=== PATIENT | male | born 1955 | race Caucasian/White ===

== ENCOUNTER 2019-08-22 14:23 | Inpatient (IN) | payer OTHER ==
[~2019-08-22] VITALS: Ht 185.4 cm; Wt 117.8 kg
[~2019-08-22 14:23] MED LIST: ATIVAN1 MG PO; BENTYL 10 MG CA10 M1 PO; CALTRATE 600 +1 EACH PO; CELEXA 20 MG TA20 MG PO; CELEXA20 MG PO; DEPAKOTE ER500 MG PO; ENALAPRIL MALEA10 M1 PO; FLEXERIL PO; FLOMAX; GABITRIL 4 MG PO; GABITRIL2 MG PO; HYDROCHLOROTHIA25 M2 PO; IBUPROFEN 800800 M1 PO; KEFLEX500 MG PO; LIORESAL 10 MG10 MG PO; OMEPRAZOLE 20 M20 M1 PO; PERCODAN TABLE1 EACH PO; PRIMIDONE 250M250 MG PO; PRIMIDONE1 GM PO; PROSCAR 5MG TABL5 MG PO; TORADOL 10 MG T10 MG PO; ULTRAM 50MG TAB50 MG PO; VASOTEC10 MG PO; VICOPROFEN 2001 EACH PO; VITAMIN D1000 UNI1 PO; ZINC50 M1 PO
[2019-08-22 14:29] VITALS: BP 146/81
[2019-08-22 15:18] LABS: URINE BILIRUBIN NEGATIVE (Negative); URINE BLOOD NEGATIVE (Negative); URINE CLARITY CLEAR; URINE COLOR YELLOW; URINE GLUCOSE-RANDOM* NEGATIVE (Negative); URINE KETONES 1+ (Negative); URINE LEUKOCYTES-REFLEX NEGATIVE (Negative); URINE NITRITE-REFLEX NEGATIVE (Negative); URINE PROTEIN (DIPSTICK) NEGATIVE (Negative); URINE SPECIFIC GRAVITY >= 1.030 (1.005-1.035); URINE UROBILINOGEN 0.2 E.U./dl (0.2-1.0)
[2019-08-22 15:24] LABS: HEMATOCRIT 43.8 % (42.0-52.0); HEMOGLOBIN 14.3 gm/dL (14.0-18.0); MCH 32.4 pg (26.0-34.0); MCHC 32.6 g/dL (28.0-37.0); MCV 99.4 fL (80.0-100.0); PLATELET COUNT 261 thou/uL (150-400); RBC 4.41 mil/uL (4.50-6.00); RDW 13.6 % (10.5-14.5); WBC 5.8 thou/uL (4.0-11.0)
[2019-08-22 15:27] LABS: CALCIUM 8.5 mg/dL (8.5-10.1); CREATININE 0.9 mg/dL (0.7-1.3)
[2019-08-22 15:33] LABS: ALBUMIN 3.5 g/dL (3.4-5.0); TOTAL BILIRUBIN 0.2 mg/dL (<0.1-1.0); TOTAL PROTEIN 6.9 g/dL (6.4-8.2)
[2019-08-22 16:00] LABS: ABSOLUTE NEUTROPHILS 2.6 thou/uL (1.4-8.2); ATYPICAL LYMPHS 8 %; PLATELET ESTIMATE NORMAL
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
[2019-08-22 17:30] VITALS: BP 160/84
[2019-08-22 18:07] VITALS: BP 160/84
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
[2019-08-22] MEDS ORDERED: ARTIFICIAL TEAR1510 OPHTHALMIC (19:32)
[2019-08-22] MEDS ORDERED: ALMACONE LIQUI355 ML PO (19:32)
[2019-08-22] MEDS ORDERED: GENTLE LAXATIVE5 M1 PO (19:33)
[2019-08-22] MEDS ORDERED: CETIRIZINE HCL5 MG PO (19:33)
[2019-08-22] MEDS ORDERED: LORAZEPAM 1 MG T1 MG PO (19:34)
[2019-08-22] MEDS ORDERED: MELATONIN5 M1 PO (19:37)
[2019-08-22] MEDS ORDERED: MIRALAX17 GM PO (19:45)
[2019-08-22] MEDS ORDERED: MILK OF MA400 MG/5 M PO (19:45)
[2019-08-22] MEDS ORDERED: MOBIC15 MG PO (19:46)
[2019-08-22] MEDS ORDERED: ONDANSETRON HCL4 M2 PO (19:47)
[2019-08-22] MEDS ORDERED: PRIMIDONE 250M250 MG PO (19:47)
[2019-08-22] MEDS ORDERED: RISPERDAL0.5 MG PO (19:48)
[2019-08-22] MEDS ORDERED: TAMSULOSIN HCL0.4 MG PO (19:48)
[2019-08-22] MEDS ORDERED: TIAGABINE HCL4 MG PO (19:49)
[2019-08-22] MEDS ORDERED: GABITRIL2 MG PO (19:49)
[2019-08-22] MEDS ORDERED: VITAMIN D32000 UNI2 PO (19:51)
[2019-08-22] MEDS ORDERED: ZINC SULFATE220 MG PO (19:52)
[2019-08-22] MEDS ORDERED: AMBIEN5 MG PO (19:53)
[2019-08-22 20:00] VITALS: BP 183/94
--- NOTE | 2019-08-22 23:38 | NUR ---
Care assumed of patient at 1915: Patient laying in bed at start of shift, awake. Patient flat, appears depressed. Alert and oriented to person. Appears confused and forgetful. Slow to respond. Denies pain or discomfort. Compliant with nursing assessment. Denies SI/HI/AH/VH. Denies depression or anxiety. No verbal or physical aggression observed. Patient impulsive at times. EKG completed. Patient sat up quickly, attempting to get up. Patient re-directed to wait 2 minutes for assessment to be completed. Patient sarcastic stating, "Didn't you think a man may have to pee?". Patient ate 100% dinner and HS snack provided. Took HS medication whole. Patient did question the amount of pills provided. But took them once more education was provided. Patient was able to fall to sleep without difficulty and has been resting quietly.
[2019-08-23 09:24] VITALS: BP 144/88
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
--- NOTE | 2019-08-23 15:39 | NUR ---
BELT PUNCHER attempted x2 to meet with this patient to complete recreation assessment. Patient sleeping soundly both times and unable to complete asssessment. Will reapproach on 08/25.
--- NOTE | 2019-08-23 15:59 | NUR ---
BUFFY completed the DA 124 abc for the level II screen then scanned and emailed it to [facility].
--- NOTE | 2019-08-23 16:58 | NUR ---
Sw spoke with Laxmi guardian and sister to pt. She stated that he was evicted from the NH in [place] and will need to find alternate placement. Sw completed the level II screen. Pt has DX of MR and ASD. This inludes some memory loss. Pt has also had seizres in the past. Sw completed the intake assessment at . Sw made referrla packet and found the guardianship paperwork on casenet and print this off and added it to his chart.
[2019-08-23 21:26] VITALS: BP 140/76
--- NOTE | 2019-08-23 23:03 | NUR ---
Care assumed of patient at 1915: Patient laying in bed at start of shift. Easily aroused. Patient agitated, irritable, frustrated. Patient slow to respond to any questions asked. Patient alert and oriented to person and place. Confused and forgetful. Patient denies pain or discomfort. Patient denies SI/HI/AH/VH. No delusional or paranoia behaviors observed. Patient educated that snack time is 1944 and if he wants a snack, he needed to go to the dayroom for HS snack. Patient educated that he is not allowed snack in his room and if he wants to take medication with food, he had to go to dayroom to have snack. Patient presented HS medication at which time he demanded a turkey sandwich. Patient chose to not come to the dayroom for HS snack. Patient instructed that he still has dinner on his stomach and his medication should not upset his stomach. Patient then focused that he has been having loose stools and the medication is causing increase in bowel movements. Patient educated that he had received a laxative earlier in the day which is causing increase in bowel movements, not his medications. Patient was not able to find any other reason to refuse his medications, so he took medication whole. Patient argumentative, demanding at times. No verbal or physical aggression shown. Patient resting quietly in bed at this time.
[2019-08-24 09:06] VITALS: BP 134/73
[2019-08-24 09:44] VITALS: BP 134/73
--- NOTE | 2019-08-24 09:55 | NUR ---
ASSUMED CARE AT 0700 THIS MORNING. PT. IN BED. HE ALLOWED STAFF TO TAKE HIS VITAL SIGNS. HE CAME INTO THE DINING ROOM FOR MEALS. HE DID NOT WANT TO TAKE HIS MEDICATIONS WITHOUT EATING FOOD. HE WAS UPSET WITH TAKING HIS MEDICATIONS AT ALL, BUT DID EVENTUALLY TAKE THEM. HE STATED HE WAS UPSET THAT THE NIGHT NURSE CAME INTO HIS ROOM WITHOUT FOOD TO GIVE HIM HIS NIGHT MEDICATIONS. HE REPEATED THIS STORY SEVERAL TIMES. DENIES SI/HI/AVH.
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
[2019-08-24 19:22] VITALS: BP 175/95
--- NOTE | 2019-08-24 21:11 | NUR ---
Care assumed of patient at 1915: Patient laying in bed at start of shift. Patient easily aroused by voice. Patient alert and oriented to person and place. Confused and forgetful. Patient slow to respond to questions. Frequently stating "I don't know". Denies pain or discomfort. Denies SI/HI/AH/VH. Denies anxiety and depression. No s/s of delusional or paranoia beahviors. Calm and cooperative with assessment. Patient informed of snack time and that he needed to go to dayroom if he wanted a snack. Patient was compliant with this instruction and joined peers in the dayroom for HS snack. Ate 100%. Politely asked if he could go to his room or if he needed to wait for HS medication. Nurse allowed patient to go back to his room and that his medications would be brought to him. Patient appreciative and stated "thank you". Patient provided HS medication which he took whole without argument or resistance. No aggression, agitation or irritable behaviors observed. Patient resting quietly in bed at this time.
[2019-08-25 06:24] VITALS: BP 158/77
[2019-08-25 09:30] VITALS: BP 158/77
[2019-08-25 09:54] VITALS: BP 158/77
--- NOTE | 2019-08-25 10:17 | NUR ---
ASSUMED CARE THIS MORNING AT 0700. PT WAS IN BED, GOT UP FOR BREAKFAST IN THE DINING ROOM. HE TOOK HIS MEDICATIONS WITHOUT PROBLEMS NOTED. NO AGITATION NOTED THIS MORNING. HE ISOLATES HIMSELF IN HIS ROOM IN HIS BED. HE WAS C/O OF BEING TIRED. WHEN ASKED IF HE SLEPT WELL LAST NIGHT HE STATED, "I WAS UP AND DOWN ALL NIGHT". WAS COOPERATIVE WITH THE ASSESSMENT.
[2019-08-25 19:34] VITALS: BP 111/81
[2019-08-25 20:45] VITALS: BP 111/81
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
[2019-08-26 07:50] VITALS: BP 137/72
--- NOTE | 2019-08-26 08:44 | NUR ---
Muriel completed chart review and sent a referral to [facility] for placement. Still pending the level II screen with NEO
[2019-08-26 11:47] VITALS: BP 137/72
--- NOTE | 2019-08-26 11:57 | NUR ---
ASSUMED CARE AT 0700 THIS MORNING. PT. WAS IN BED, ALLOWED THIS RN TO ASSESS HIM WITHOUT DIFFICULTY. HE CONTINUES TO WEAR A HOSPITAL GOWN IN PLACE OF HIS OWN CLOTHES. HE WILL SECLUDE HIMSELF IN HIS ROOM BETWEEN ACTIVITIES. HE TOOK HIS MORNING MEDICATIONS WITHOUT PROBLEMS NOTED TODAY. HE CONTINUES LOOK SAD, SULLEN. FAMILY CAME AT VISITATION TIME TO INFORM THE PATIENT THAT HIS MOTHER HAD THIS WEEKEND. PATIENT WAS TEARFUL WITH THE INFORMATION.
--- NOTE | 2019-08-26 16:17 | NUR ---
Pt was denied at [facility]. SW sent a referral to [facility] part of the [facility] admissions [phone] and left a requesting placement and reported on this pt losing his other this week and wanting to go to the on [facility].
[2019-08-26 19:45] VITALS: BP 150/76
[2019-08-26 20:15] VITALS: BP 150/76
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
[2019-08-27 08:00] VITALS: BP 140/77
--- NOTE | 2019-08-27 08:22 | NUR ---
PT OUT IN DINING ROOM EATING BREAKFAST. PT FINISHED AND WENT BACK TO ROOM. PT AMBULATING WITHOUT A WALKER THIS AM.
[2019-08-27 08:47] VITALS: BP 140/77
--- NOTE | 2019-08-27 10:49 | NUR ---
ADM PT IBUPROPHEN 600MG PO FOR PAIN TO RT RIBS. PT WAS UNABLE TO STATED LEVEL OF PAIN. TALKED TO PT ABOUT HIS MOTHERS PASSING. PT NOT CONVERSING VERY MUCH ABOUT HIS FEELINGS. ENCOURAGED PT TO TALK TO NURSE OR DR. ZAMORA ABOUT HIS FEELINGS. PT SEEMS SAD. ASKED PT ABOUT GOING TO GROUP, PT STATED HE DIDN'T WANT TO GO TO GROUP THIS AM. PT DID HAVE TEARY EYES. PT TALKED ABOUT LIVING IN [facility] WITH HIS FAMILY AND GOING ON THE SHOW BOAT WITH SINGERS AND FOOD.
--- NOTE | 2019-08-27 13:01 | NUR ---
PLANNING MANAGEMENT IT SPECIALIST attempted to complete recreation assessment with pt in his room. PLANNING MANAGEMENT IT SPECIALIST introduced self and role on the unit and asked if assessment could take place. Pt replied- "I already told everyone I am not answering any questions. Now is not a good time." PLANNING MANAGEMENT IT SPECIALIST asked pt when he would like to complete assessment and pt replied with, "not anytime." To date, pt has not attended recreation groups.
--- NOTE | 2019-08-27 15:04 | NUR ---
BUFFY called [facility] to f/u from referral sent this AM. She stated that th DON will look at it and that placement could be at [facility] but would take 2 days to get back with me. BUFFY also asked Dr lr to consider discharging this pt to go to his mother's . BUFFY then called Laxmi GUTIÉRREZ and left a VM asking for information regarding the and time.
--- NOTE | 2019-08-27 18:18 | NUR ---
PT STATED THAT THE IBUPROPHEN WAS NOT AFFECTIVE FOR RIB PAIN.
[2019-08-27 19:25] VITALS: BP 118/73
[2019-08-27 21:00] VITALS: BP 118/73
--- NOTE | 2019-08-28 04:18 | NUR ---
Assumed care of patient this pm shift. Patient was walking around in the activity area. Patients affect was blunted. Patient denies pain. Patient denies hi/si. Patient states that he has had a little anxiety but it is better today. Patient is dressed neatly wearing an orange shirt and pants. Patients assessment shows clear breath sounds, active bowel sounds and s1 s2 heard with auscultation. Patient is calm and cooperative and shows no aggression. Patient takes medications whole. Patient ambulating without assistance with a steady gate. We will continue to monitor.
[2019-08-28 08:42] VITALS: BP 136/76
--- NOTE | 2019-08-28 09:35 | NUR ---
Muriel spoke with Laxmi and she stated that the is tomorrow but do not think this pt can tolerate the event. It was suggested that the service be live feed , Sw offered to use the IPAD and provided Laxmi with email to gather to link. The service will also be video taped and offered at back up for this pt. Will know more later today.
--- NOTE | 2019-08-28 10:30 | NUR ---
TALKED TO SISTER MYCHAL, SHE STATED HIS MOTHER HAD PASSED 1:50PM MONDAY. SHE STATED THAT SHE WAS SICK FOR AWHILE. SHE STATED HIS DAD PASSED IN 2013 AND PASSED FROM AF[facility] AND STOPPED TAKING HIS MEDICINE. SHE ALSO STATED HIS SISTER ANGELA 2015 FROM BREAST CANCER THAT SHE FOUGHT FOR 11 YEARS. PT IS MORE ISOLATIVE TODAY STATING HE IS TIRED.
--- NOTE | 2019-08-28 17:41 | NUR ---
Patient stated ibuprofen from yesterday was not effective, nor was the "BenGay". Ultram 50 mg given 152 with relief from 810 down to 410 predominantly on right ribs. He has been withdrawn to his bed/room most of the day refusing to go to groups stating he needs to sleep. Educated about trying to get his sleep at night instead of mixing up his sleep time. He continues to respond very slowly to questions, does not initiate conversation. He has gotten out of his room for meals. He has been compliant with medications.
[2019-08-28 19:16] VITALS: BP 131/70
[2019-08-28 21:00] VITALS: BP 131/70
--- NOTE | 2019-08-29 01:18 | NUR ---
Assumed care of patient this pm shift. Patient in his room at this time. Patients affect is flat. Patient denies hi/si. Patient is isolative at this time. Patient cooperative with RN and adhered to scheduled medications. Patient takes medications whole. Patient ambulates this evening with out assistance. Patient is somewhat slow to answer questions and lacks emotion. Patients assessment shows clear breath sounds, active bowel sounds, and s1 s2 heard with auscultation. Patient denies pain. At this time (0120 am) patient is resting comfortably in bed asleep. We will continue to monitor.
[2019-08-29 07:52] VITALS: BP 156/88
--- NOTE | 2019-08-29 08:48 | NUR ---
Muriel spoke with Laxmi this AM and they were unsuccesful with th live feed option for the . She wants this pt to see the tomorrow via video when they visit him. This was reported to nursing staff. Pt has not asked baout the and it would be best if he recieves this information from his family.
--- NOTE | 2019-08-29 11:49 | NUR ---
Sw completed chart review and pt is making gains but will need to stay until the level II with COMRU is completed and placement is established.
--- NOTE | 2019-08-29 13:12 | NUR ---
VSS-AFEBRILE. CALM AND COOPERATIVE. DID APPEAR SLIGHTLY IRRITATED WHEN ASKED TO GO TO DINING AREA FOR LUNCH. USES WALKER WHEN AMBULATING, OCCASIONALLY UNSTEADY. C/O PAIN WITH LEFT FOOT, SENSATION INTACT, ABLE TO BEAR WEIGHT APPROPRIATELY. MEDICATED WITH PRESCRIBED PO TRAMADOL, PARTIAL RELIEF NOTED. NO AGRESSION WITNESSED.
[2019-08-29 17:55] VITALS: BP 147/63
--- NOTE | 2019-08-29 18:13 | NUR ---
Lying supine in bed without s/o distress. Drowsy. Orientated to name only. Denies SI/HI. States he is angry at his sister for putting him here. Breath sounds clear t/o, bilaterally equal. Reg HR auscultated. Color pink with brisk capillary refill and palpable peripheral pulses. Slight amt nonpitting edema in lower extremities. Independent with voiding. Active bowel sounds over soft, rounded abdomen. Regular, steady gait when up ambulating with walker. BP repeated, improved.
[2019-08-29 19:30] VITALS: BP 149/78
--- NOTE | 2019-08-30 03:42 | NUR ---
Assumed care of pt @ 1900. Pt calm et cooperative this shift. Pt ambulates ad jesus with assistance of walker. Took medications whole without difficulty. Denies SI/HI at present time. VSWNL. Health assessment with no abnormalities at present time. No behaviors noted. Pt isolated in room most of shift et only came out for a snack. Currently resting in bed with eyes closed. Will continue to monitor per protocol.
[2019-08-30 07:31] VITALS: BP 144/76
--- NOTE | 2019-08-30 11:10 | NUR ---
Nutrition: Seen for LOS. Admit w/ aggression, autism to [facility] unit. No wt hx. Pt unable to relay. BMI 35, obesity class 2. Well nourished, eating 100% of meals on regular diet. On B12 and vitamin D supplementation. Pt slow to respond but was able to provide some food preferences to RD, will assist with menu changes as requested. Low nutrition risk.
--- NOTE | 2019-08-30 14:55 | NUR ---
Pt attended grp today lead by Britt in dietary. Barney came late and did not participate.
--- NOTE | 2019-08-30 15:30 | NUR ---
PT ATTENDED GROUP AND PARTICIPATED IN GAME.
--- NOTE | 2019-08-30 15:33 | EKG ---
[facility] [address] ELECTROCARDIOGRAM REPORT Name: CHRISITNE REINOSO Room #: [facility]- ADM IN M.R.#: [id number] Admission: 08/22/19 Attend Phys: Ian Keith DO Discharge: Date of : 57 Report #: [id number] THIS REPORT FOR: cc: FAM - No family physician/PCP FAM - No family physician/PCP Umang Guevara MD [facility] ~ THIS REPORT FOR: //name// [facility] Test Date: 2019-08-22 Test Time: 21:12:04 Pat Name: CHRISTINE REINOSO Department: Room: [facility] A Gender: M [employer] Room Supervisor: Theresa CAAL : 1955 Requested By: Ian Keith Order Number: [id number] MD: Umang Guevara Measurements Intervals [place] Rate: 69 P: 43 AL: 160 QRS: 1 QRSD: 86 T: 33 QT: 411 QTc: 441 Interpretive Statements Sinus rhythm Normal tracing No previous ECG available for comparison Electronically Signed On 08-23-2019 9:42:31 RAW MATERIAL HANDLER by Umang Guevara [email or web address] <ELECTRONICALLY SIGNED> By: Umang Guevara MD, FACC 08/23/19 0942 11 11 Umang Guevara MD, [facility] /EPI
--- NOTE | 2019-08-30 15:39 | NUR ---
RECEIVED PT'S CARE AROUND 0730; PT. ON BED; RESTING WITH EYES CLOSES; ANSWERED BACK WHEN CALLED NAME TO WAKE UP AND SEE THE NURSE; DURING AM ASSESSMENT ST. NO HAVING PAIN; TOOK AM & PM MEDICATIONS; IN THE MORNING REQUESTED TO USE THE PHONE; PER REPORT NO ABLE TO WATCH MOTHER'S THROUGH VIDEO; PT. SLEEPING MOST OF THE DAY; SLEEP INTERRUPTED DURING THE AFTERNOON TO GO TO GROUP THERAPY; ST. "I AM SO TIRED"; ENCOURAGE TO GO TO GROUP THERAPY; ST. HAVING A BM TODAY 08/30/2019; USED WALKER TO AMBULATE; CALM THROUGH THE DAY; ASSESSMENT CHARGED; FOLLOWING POC; WILL PASS ON REPORT;
[2019-08-30 19:59] VITALS: BP 160/87
[2019-08-30 21:00] VITALS: BP 160/87
--- NOTE | 2019-08-31 00:36 | NUR ---
Assumed care of patient this pm shift. Patient sitting in the dining room watching tv. Patients affect flat. Patient appears sad. Patient mentioned that his sister did not come see him today. Patient denies hi/si. Patient appears to be clean. Patient states that he is tired. Patient took medications whole with water this evening. Patient ambulates without assistance. Patients gate is steady. Patients assessment shows clear breath sounds diminished in the bases, active bowel sounds, and s1 s2 heard with auscultation. Patient is slow to speak and takes time to process what is said to him. Patients speech is slow to respond. Patient states that he is having pain in his foot. Ibuprofen given for pain. Patient went to bedroom around 9pm and woke once and came to the desk stating that he needed help with his blankets. RN untangled blankets and covered patient up. Patient has been asleep since. We will continue to monitor.
[2019-08-31 08:00] VITALS: BP 162/79
[2019-08-31 09:32] VITALS: BP 162/79
--- NOTE | 2019-08-31 10:29 | NUR ---
1025 RESUMMED CARE FROM OVERNIGHT SHIFT THIS AM, PATIENT IN ROOM QUIET IN BED. PATIENT CAME TO DAY ROOM FOR BREAKFAST AND TOOK MEDICATION WITHOUT INCIDENCE. PATIENT DENIES SI/HI/AH/VH AT PRESENT, PATIENT TEARFUL ABOUT MOTHERS . PATIENT ENCOURAGED TO TRY TO PARTICIPATE IN GROUP AND TRY TO LEAVE ROOM. PATIENT WANTS TO BE IN ROOM AND SLEEP NO PARTICIPATION OR INTERACTION WITH OTHER PATIENTS. LUNGS CLEAR ABDOMEN SOFT AND ROUND BOWEL SOUNDS PRESENT. WILL CONTINUE TO MONITOR PATIENT FOR BEHAVIORS AND SAFETY.
[2019-08-31 11:16] VITALS: BP 154/70
[2019-08-31 20:06] VITALS: BP 174/86
--- NOTE | 2019-09-01 03:07 | NUR ---
Assumed care of pt @ 1900. Pt calm et cooperative this shift. Took medications whole without difficulty. Ambulates the halls with assistance of walker with steady gait. Isolates in room most of shift. Does not frequently socialize with peers. Denies SI/HI at present time. VSWNL. Health assessment with no abnormalities at present time. Currently resting in bed with eyes closed. Will continue to monitor per protocol.
[2019-09-01 08:46] VITALS: BP 136/71
--- NOTE | 2019-09-01 16:10 | NUR ---
PT ALERT AND ORIENTED TIMES FOUR, WITH FLAT AFFECT. VSS. PT DENIES SI/HI/AH/VH. PT TOLERATES MEDS AND MEALS. PT UP AND OUT AROUND THE UNIT INTERACTING WITH PEERS. PT DID ATTEND GROUP. PT PROGRESSING TOWRADS POC GOALS.
[2019-09-01 19:52] VITALS: BP 146/71
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
[2019-09-02 07:52] VITALS: BP 135/69
--- NOTE | 2019-09-02 08:45 | NUR ---
SW completed chart review and he seems to be in mourning regaridng his mother;s recent passing and requires placement . Still pending the level II screen.
[2019-09-02 11:01] VITALS: BP 136/69
--- NOTE | 2019-09-02 11:35 | NUR ---
SW called [facility] and left a VM with Tori in admissions requesting f/u for a possible d/c this week.
--- NOTE | 2019-09-02 13:49 | NUR ---
1347 RESUMMED CARE FROM OVERNIGHT SHIFT THIS AM, PATIENT UP IN DAY ROOM WAITING FOR BREAKFAST. PATIENT TOOK MEDICATION WITHOUT INCIDENCE, BOWEL SOUNDS PRESENT ABDOMEN SOFT AND ROUND. PATIENTS LUNGS CLEAR DENIES SI/HI/AH/VH AT PRESENT. PATIENT PARTICIPATED IN GROUPS MORE INTERACTIVE COOPERATIVE CALM. WILL CONTINUE TO MONITOR PATIENT FOR BEHAVIORS AND SAFETY.
[2019-09-02 19:30] VITALS: BP 142/78
[2019-09-02 21:01] VITALS: BP 142/78
--- NOTE | 2019-09-02 21:30 | NUR ---
2134 RESUMMED CARE FROM DAY SHIFT, PATIENT IN DAY ROOM WATCHING TV QUIETLY. PATIENT TOOK MEDICATION WITHOUT INCIDENCE PATIENT DID COMPLAIN OF A SCRATCHY THROAT AND WANTED A LOZENGER. PATIENT'S LUNGS CLEAR ABDOMEN SOFT ROUND BOWEL SOUNDS PRESENT. PATIENT DENIES SI/HI/AH/VH AT PRESENT, PATIENT'S AFFECT BRIGHTER NOT ISOLATING ANYMORE. WILL CONTINUE TO MONITOR PATIENT FOR SAFETY AND BEHAVIORS.
--- NOTE | 2019-09-03 08:33 | NUR ---
BUFFY spoke with Tori at [facility] and she stated they would be reviewing this pt this AM in their referral meeting. Tori stated she did not need any more updates and would call later in the day with the results of the meeting.
[2019-09-03 09:05] VITALS: BP 140/81
--- NOTE | 2019-09-03 09:19 | NUR ---
SW met with pt this AM and checked in about his feelings. He stated that he is still angry at Dr Keith for not letting him see his mom's . Sw spent some time discussing ways to express frustration and anger without threatening violence but pt is fixated on Dr Keith. Pt does admit that his nager is not towards anyone else.
--- NOTE | 2019-09-03 09:44 | NUR ---
BUFFY and Dr keith called and spoke with Laxmi regarding the increasing threatening comments and his complex grief. Laxmi reported that she would be coming in tomorrow evening from 5:30 to 6:30 pm to show the video and that would be calling more. Dr Keith suggested that she visit more and provide more support as this pt is struggling with his feelings.
--- NOTE | 2019-09-03 12:55 | NUR ---
Mood upset, angry that he was not allowed to attend his mother's . At times he appears anxious, sad. His rib pain was reduced to about 3/10. He declined to talk about his mother and the things they did together or to bring up thoughts about his mother. He participated in morning Rec. Therapy-exercise and discussion. He also complained of a sore throat. Given PRN benzocaine joce. with no noticeable improvement. He declined to gargle with salt water--unsure if he doesn't understand what that is or was not answering.
[2019-09-03 19:42] VITALS: BP 154/72
--- NOTE | 2019-09-03 23:06 | NUR ---
PT SITTING IN DAY ROOM WATCHING TV IN THE BACK OF THE DAY ROOM. PT INTERACTING WITH STAFF VERSUS PEERS. PT AMBULATING WITH WALKER STEADY. PT COMPLIANT WITH MEDS AND HS SNACK. PT REPORTING CONCERN R/T BLE EDEMA, REPORTING LLE WORSE. PT BLUNTED AFFECT SLOW RESPONSE WITH ALL COMMUNICATION. TALKED ON PHONE WITH HIS SISTER.
--- NOTE | 2019-09-04 09:22 | NUR ---
BUFFY Dumont and Tori reported that they are still considering this pt and might ahve an answer this PM . Level II is still pending.
[2019-09-04 10:35] VITALS: BP 145/85
[2019-09-04 13:14] VITALS: BP 145/83
--- NOTE | 2019-09-04 13:44 | NUR ---
Assumed care at 0700. Patient is pleasant and cooperative. vitals are stable. Lungs are clear. Edema noted on BLE especially left leg. Dr. Pacheco notified and ordered SCDs. Blunted affect noted. Very calm. Patient says the axiety today is lke 2 but it gets worse if another patient bothers him especially the patient who was shouting at him. Vit labs ordered. patient takes food and medication without any issues. Today he didn't mention anything about his mom. Attended group therapy today. Will continue with the plan of care.
--- NOTE | 2019-09-04 18:05 | NUR ---
Patient ate dinner well. The sister visited 1730 to show him the mom's recording. They sat at the conference room and the patient seemed ok and following. Nurse did random checks to make sure he was ok. Patient was calm through out. will continue to monitor for any saddness, depression or anxiety.
[2019-09-04 19:36] VITALS: BP 156/86
--- NOTE | 2019-09-05 00:57 | NUR ---
Pt alert and oriented x4. Pt was calm and cooperative during assessment. Pt was in the room at the tiem of assessment. Pt denies anxiety, depression. No aggitation or agression noted. When asked how pt was doing tonight, pt voiced "I'm tired and beat". Pt already sleeping and snoring during med pass. Pt woke up and took meds per emar. Pt agrees to bilat rib pain 03/05. Tramadol given for pain. Pt took meds whole. Edema to BLE. Renny hose to BLE. Pt declined HS snacks. Pt in bed and currently sleeping. Will continue to monitor.
[2019-09-05 08:59] VITALS: BP 145/75
--- NOTE | 2019-09-05 12:02 | NUR ---
Nutrition: Seen for early follow up. Met w/ pt in day area. Pt with continued high PO intake levels, eating nearly 100% of all recorded meals. Meal average= 97% per the last 16 recorded meals, 08/30 - 09/04. No new wt since 08/30 at ~262#. Pt able to voice desire to work on losing a little weight. RD focused on very small goals, easy concepts. Suggested he work on changing to calorie-free beverages and other easy ways to eliminate unncessary kcals by reducing dessert intake. Pt agreeable w/ this. At first wanted to change dinner to pizza, but then voiced interest in salad. Plan to modify dinner to a costume shop coordinator salad w/ meat, cheese, and vegetables. Continues on cholecalciferol and vitamin B12 supplements; both labs WNL, with vitamin D at 48.4 ng/ml. Pt thankful for RD guidance on food changes. Remains low nutrition risk.
--- NOTE | 2019-09-05 15:05 | NUR ---
SW left a VM for [facility] asking for information about the level II.
--- NOTE | 2019-09-05 15:09 | NUR ---
Muriel called and verifued that Julia was overwhelmed with their survey but they are still considerign this pt. COM level II is still pending.
--- NOTE | 2019-09-05 18:38 | NUR ---
This afternoon Bladdeer Scanner revealed 65cc residual, did not need catherization. Wearing PERI Hose to BLE for edema. Participating in afternoon group. Affect is improving, cheerier, making efforts to be out in the milieu more frequently. Given towels/toiletries and took shower. Seems to becoming more articulate. 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 No mention of being angry at his sister, though he was not specifically asked about their relationship.
[2019-09-05 19:51] VITALS: BP 150/85
--- NOTE | 2019-09-05 22:55 | NUR ---
Pt was in the dayroom at time of assessment. Pt's affect sad and pt agreed to feeling depressed. Nursing inquired the cause of the depression. Pt became tearful and voiced that his mom passed and the dr refused him from going to his mom's . Nursing is aware that pt's sister visited yesterday with mom's video and they both watched it. Nursing inquired about that and pt voiced that it is not the same. Pt voiced that his mom was wearing a purple outfit in her casket and purple is her favorite color. Pt voiced that he is ready to leave this place, go home and ask his sister if he can get . Pt took meds whole. Pt had HS snacks. Pt's mood lightened up later on while in the dayroom. He waas laughing and interacting with peers. He was in the dayroom watching his fishing and hunting show until tv went off. Pt came out and requested for lozenges. Pt is complaining of non-productive cough. Pt currently in bed. Will continue to monitor.
[2019-09-06 07:30] VITALS: BP 151/87
--- NOTE | 2019-09-06 11:15 | NUR ---
Given Lozenge 1040 c/o sore throat. Throat reddened, neck glands tender to touch. Seen by Hospitalist. Temp=98.4 oral@ 1030. No SI/HI or A/V/hallucinations. No delusions. Lozenge not very effective. Says the origin of his sore throat is related to having the room door open and the room being cooler. He would prefer having his main room door closed and the staff using the small inner door opened and closed to check on him. He is compliant with attending AM Group.
--- NOTE | 2019-09-06 14:43 | NUR ---
BUFFY resubmitted the DA 124 abc to [facility] with updates per their request.
[2019-09-06 20:23] VITALS: BP 144/76
--- NOTE | 2019-09-06 21:42 | NUR ---
Assumed care at change of shift. Patient sitting in day room watching movie with his peers and appears content. Pt. is able to answer orientation questions but has history of Autisim Spectrum Disorder and is slow to comprehend and slow to respond. He denies pain and no signs or symptoms of distress noted. At approximately 2100 pt became angry when told he would no longer be able to have the strap on his glasses. It was explained to him by the charge nurse the regulations regarding items with ligature risk. He was visibly upset. He requested to talk to his sister and she was contacted on the phone. The situation was explained to her and she then spoke with Barney via portable phone and he calmed down. At approximately 2145 pt was reassesed and he remains calm, cooperative and in no apparent distress. Charge nurse who removed strap then secured it in the locker room with patient's personal belongings.
[2019-09-06 21:53] VITALS: BP 144/76
[2019-09-07 08:19] VITALS: BP 148/68
[2019-09-07 10:08] VITALS: BP 148/68
--- NOTE | 2019-09-07 10:21 | NUR ---
ASSUMED CARE AT 0700 THIS MORNING. PT. UP, DRESSED AND ON THE UNIT FOR THE MORNING. HE HAS A PRESENT COUGH, NO SPUTUM NOTED. HE HAS SOME CRACKLES IN HIS RUL. THE OTHER LOBES ARE CLEAR. HE WAS GIVEN A MASK TO WEAR WHEN WITH THE PEERS, FOR PREVENTION OF INFECTION OF OTHERS. PT. STATES HIS THROAT IS A BIT SORE. HE WAS GIVEN A LOZENGE. HE IS CURRENTLY ASKING FOR COUGH SYRUP. WILL TALK WITH DR. WHITTEN AND/OR DR. DAVIE CALDERA SHE ARRIVES ABOUT THIS. HE IS PLEASANT AND COOPERATIVE WITH STAFF. HE UTILIZES A WALKER WHEN AMBULATING. HE IS ATTENDING GROUPS.
--- NOTE | 2019-09-07 20:10 | NUR ---
Assumed care at change of shift. Pt. sitting in day room watching TV with his peers. He is wearing a mask over nose and mouth. Lungs coarse to BUL and diminished in all others. Occasional non-productive cough noted. He also complains of intermittent ear pain. Face is flushed. No temperature at this time. At approximately 1930 PRN Cepacol lozenge given for complaints of sore throat. Education done with patient regarding PRN order for cough syrup. He is slow to response but states that he understands and wants to take that when he goes to bed.
[2019-09-07 20:31] VITALS: BP 160/70
[2019-09-07 23:35] VITALS: BP 160/70
[2019-09-08 08:14] VITALS: BP 145/82
--- NOTE | 2019-09-08 09:03 | NUR ---
GAVE PT A CEPECROL KWAN THIS AM.
--- NOTE | 2019-09-08 09:40 | NUR ---
PT OUT IN DINING ROOM. PT CONVERSING AND SMILING WITH OTHER PATIENTS. PT STATED HE JUST WANTED TO GET BETTER. NOT NOTICING INCREASING IN COUGH. PT PARTICIPATING IN GROUP COLORING. PT USES WALKER SOMETIMES AND OTHER TIMES HE DOESN'T.
[2019-09-08 09:45] VITALS: BP 145/82
--- NOTE | 2019-09-08 15:28 | NUR ---
ADM GUAIFENESIN SYRUP FOR COUGH 5ML. PT HAS BEEN ATTENDING GROUPS TODAY.
--- NOTE | 2019-09-08 15:32 | NUR ---
ADM LOZENGER PER REQUEST FOR SORE THROAT.
--- NOTE | 2019-09-08 18:17 | NUR ---
PT HAS BEEN LAUGHING WITH OTHER STAFF AND RESIDENTS. NO COUGH NOTICED. PT GETTING ALONG SOCIALY WITH OTHERS.
[2019-09-08 19:48] VITALS: BP 175/79
--- NOTE | 2019-09-09 05:10 | NUR ---
ASUMED CARE OF PT AT 1900HRS. PT WAS CALM AND COOPERATIVE THIS SHIFT. PT WAS PLEASANT WITH STAFF AND PEERS. PT HAS A COUGH AND PRN MEDS WERE GIVEN. PT TOOK ALL MEDS THIS SHIFT. PT DENIED PAIN, SI OR HI. PT WAS ABLE TO GET COMFORTABLE AND SLEEP PART OF THE SHIFT. VSS AND NO S/S OF ACUTE DISTRESS. WILL CONTINUE TO MONITOR.
[2019-09-09 07:00] VITALS: BP 134/76
[2019-09-09 07:59] VITALS: BP 157/94
--- NOTE | 2019-09-09 09:13 | NUR ---
Sw completed chart review and pt seems to be making gains. [facility] is still pending the level II. Placement is still being established.
--- NOTE | 2019-09-09 10:30 | NUR ---
Sore throat/cough/bilateral eye pain reported to Dr. Quintero. Has been given throat lozenge. Continues to want to wear Renny hose. Compliant with group and medications. Cough not observed by this nurse. He wants the room to be kept warm by room door being kept shut and inner door unlocked for room checks at night. Denies SI/HI/A/V hallucinations; no obseerved delusional conversation. Mood varies from serious/depressed to pleasant/cheerful. Initiated conversation with this nurse.
--- NOTE | 2019-09-09 14:59 | NUR ---
Attending afternoon group with focused attention and verbal participation. Reports his throat is somewhat better. Has initiated conversation with select peers. No SI/HI/A/V hallucinations or delusions observed/reported. Occasionally he is slow to respond to questions. He is making his needs/requests known. No further physical complaints.
[2019-09-09 19:00] VITALS: BP 134/76
--- NOTE | 2019-09-09 19:14 | NUR ---
While nurse was observing patient shave with his electric razor he made the comment: "That Dr. Keith better not make me mad." He did not elaborate his veiled threat. Patient is unhappy that he was not moved to another room due to his roommate snoring, talking and laughing in his sleep. Patient was assisted with a shower, shampoo. It was reinforced that he will get a new med tonight that hopefully will help him sleep throughout the night.
--- NOTE | 2019-09-10 05:14 | NUR ---
ASSUMED CARE OF PT AT 1900HRS. PT IS CALM AND COOPERATIVE THIS SHIFT. PT DENIES SI/HI. PT COMPLAINED OF A DRY COUGH AND PRN COUGH MEDS WERE GIVEN. PT WAS ABLE TO GET COMFORTABLE AND SLEEP PART OF THE SHIFT. VSS AND NO S/S OF ACUTE DISTRESS. WILL CONTINUE TO MONITOR.
[2019-09-10 07:48] VITALS: BP 131/73
--- NOTE | 2019-09-10 11:43 | NUR ---
PT COOPERATIVE, FRUSTRATED AT TIMES. PATIENT HAS A NON PRODUCTIVE COUGH, MEDICATION GIVEN. PATIENT DENIES SI/HI/AH/VH. PATIENT PARTICIPATES IN GROUPS AND EATS WELL. VSS, NO SIGNS OF DESTRESS. WILL CONTINUE TO MONITOR.
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
[2019-09-10 19:14] VITALS: BP 157/70
--- NOTE | 2019-09-10 22:09 | NUR ---
Pt was pleasant and cooperative during assessment. Pt was in the dayroom sitting with peers at that time. No agression, irritation or anxiety noted. Pt was alert and oriented x4 during assessment. Meds given per emar. cough meds given per pt's request. Pt had HS snacks this shift. Pt sat in the dayroom watching tv till about 2200. Pt now in bed. Will continue to monitor.
[2019-09-11 08:00] VITALS: BP 133/81
[2019-09-11 08:49] VITALS: BP 133/81
--- NOTE | 2019-09-11 10:15 | NUR ---
ASSUMED CARE REPORT RECEIVED FROM NURSE. PT IS AOX3 FORGETFUL. ON RA. USES THAT WALKER TO AMBUALTE AROUND. ATE FULL BREAKFAST. PT PARTICIPATED ON GROUP WITH OTHER PATIENTS. DENIES PAIN. WILL CONTINUE TO MONITOR
--- NOTE | 2019-09-11 11:20 | NUR ---
Nutrition follow up: No nutrition changes in the last wk. Eating 100% of every single meal, plus often eating 100% of 2 daily snacks most days per meal review 09/04 - 09/09. Recent BM 09/07; continues on daily docusate sodium. Plus continues on cholecalciferol, vitamin B12 supplements; both labs WNL. Wt is up slightly +3# from 265.4# on 08/22 to 268.6# on 09/06. No new wt taken this wk. Will continue to monitor for further wt gain and consider adding restrictions to diet/eliminating dessert options, etc. if needed. Facility to come look at pt today as pt SW continues to work on placement. Keep as low nutrition risk. Check back next week to reassess if further wt gain occurred.
--- NOTE | 2019-09-11 16:26 | NUR ---
pt received a bath after lunch time. pt currently in activity room awaiting for diner
[2019-09-11 19:20] VITALS: BP 164/81
[2019-09-11 21:00] VITALS: BP 164/81
--- NOTE | 2019-09-11 23:11 | NUR ---
Assumed care of patient this pm shift. Patient calm and cooperative. Patient denies pain. Patient denies hi/si. Patient states that he has a cough that keeps him awake. Patient given a cepacol lozenge and guifenesin syrup prior to bed. Patient takes medications whole. Patient ambulates with walker some of the time and ambulates without as well. Gait is steady. Patients appearance is clean. Patients hair is dishoveled. Patient is pleasant with a slightly blunted affect. Patients assessment shows clear breath sounds, active bowel sounds, and s1 s2 heard with auscultation. We will continue to monitor.
[2019-09-12 07:15] VITALS: BP 133/90
[2019-09-12 09:22] VITALS: BP 140/70
--- NOTE | 2019-09-12 10:42 | NUR ---
BUFFY recieved a FAX form [facility] that this pt will have a level II completed in the next 9 business days. Yesterday BUFFY spoke with Tori at [facility] and they are sendning someone out to assess this pt from [facility] today. BUFFY provided education about how to enter the hospital as it is now no longer accepting visitors due to COVID 19.
--- NOTE | 2019-09-12 12:36 | NUR ---
O715 Sleeping on L side with audible snore. Awakens easily. Alert and orientated X3, denies SI/HI. States his throat hurts but declines Cepacol saying that he already has one from night RN. Posterior pharynx erythamatous. Breath sounds clear t/o, bilaterally equal. Reg HR ausculated. Color pink with brisk capillary refill and +2 nonpitting edema, PERI hose in place. Palpable peripheral pulses. Independent with voiding. Active bowel sounds over soft, rounded abdomen. 0930 Conversant with peers at breakfast table. Calm, compliant and cooperative. 1100 States his ribs are hurting and ranks it a 9/10. Some facial grimacing when talking about pain. States it is sharp and started after he had a bowel movement. 600 mg ibuprophen given per PRN order. Sitting quietly in day room watching TV with peers. 1245 States pain has decreased to a 3/10.
--- NOTE | 2019-09-12 16:05 | NUR ---
Muriel spoke with lenny hurtado from [facility] and he will be coming to complete the intake assessment with this pt tonian between 5:30 and 6pm. This has been cleared with the District Plant Supervisor and Jeanette, nursing staff have also been informed.
[2019-09-12 19:27] VITALS: BP 135/74
--- NOTE | 2019-09-12 22:48 | NUR ---
ASSUMED CARE ON 09/12/19 @19:00, SITTING IN ELEONORA CHAIR IN DAY ROOM, WEARING A SURGICAL MASK. EYES CLOSED, RESPIRATIONS EVEN AND UNLABORED. AWAKENS TO VOICE, ANSWERS SLOWLY, REPORTS IS TAKING A NAP. OCCASIONAL COUGH NOTED. COOPERATED WITH ASSESSMENT, HRRR, S1S2 NOTED. LUNG SOUNDS AUSCULTATED EVEN BILATERAL LAU, ABD NORMOACTIVE SOUNDS OVER A ROUND OBESE ABDOMEN. TOOK MEDS WHOLE WITH WARM WATER. REQUESTED AND PROVIDED WITH GUIFENASEN 5 MG AND CEPOCOL LOSANGE. REPEATEDLY ASKED FOR A DOUBLE DOSE OF COUGH MEDICINE SAYING, YOU WOMEN DONT KNOW ABOUT MEN. AGITATED AND ARGUMENTATIVE WITH STAFF, WITH A FLAT AFFECT NOTED. REQUESTED MORE COUGH MEDICINE, HOWEVER IT WAS NOT TIME TO TAKE IT AGAIN ON A Q 4 ROTATION. CEPOCOL LOSANGE PROVIDED WHEN Q2 TIME FRAME ARRIVED @ 2300. HOT TEA OFFERED AND ACCEPTED.
[2019-09-13 04:18] VITALS: BP 135/74
--- NOTE | 2019-09-13 06:06 | NUR ---
slept 8.2 hours overnight
[2019-09-13 07:55] VITALS: BP 148/78
--- NOTE | 2019-09-13 13:49 | NUR ---
Up in day room without s/o distress, participating in activities. Alert and orientated to self only. Denies SI/HI. Conversing with peers. Asking for nails to be clipped which was done. Also asking for razor to be charged. Breath sounds clear t/o, slightly diminished. Dry, nonproductive cough, sporadic. Reg HR auscultated. Color pink with brisk capillary refill and palpable peripheral pulses. Edema in lower extremities increased from yesterday +2-3. Renny hose in place. States he had a BM this AM. Active bowel sounds over large, soft, rounded abdomen. Independent with voiding. Regular, steady gait with walker. Coloring in day room after nails clipped.
--- NOTE | 2019-09-13 13:53 | NUR ---
Date of Admission: 08/22/19 Date of Activity Therapy Assessment: 08/25/19 Activity Goal: Impulse Control, Social Skills Initial Goal: 2 groups per day Weekly progress towards goal: Achieving goals Group participation level: Full Behaviors observed: Patient participates in all groups. At times he challenges social boundaries, but is easily redirected. No aggression noted. Plan: No change towards goal
--- NOTE | 2019-09-13 15:12 | NUR ---
SW met with pt and colored wiht him in the dingin room. We talked baout d/c and he was jovana pleasant mood. Unable to have group due to COVID 19 restrictions.
[2019-09-13 19:22] VITALS: BP 157/85
--- NOTE | 2019-09-13 21:08 | NUR ---
Assumed care at change of shift. Pt. sitting in dining room with mask due to cough. He is compliant with using mask when in multi-use areas. Pt. requsting breathing treatment from RT for cough. Explained to patient that he does not need a breathing treatment because his lungs are not congested and he is able to cough. PRN Cepacol Lozenge and Guifensen syrup given for cough.
[2019-09-13 23:41] VITALS: BP 157/85
[2019-09-14 07:13] VITALS: BP 170/83
[2019-09-14 10:26] VITALS: BP 170/83
--- NOTE | 2019-09-14 14:24 | NUR ---
SW did a check in with pt instead of group due to COVID-19 guidelines. When BUFFY did check in, he complimented SW earrings and then said he was ok. He then said that he is supposed to have cough syrup 4 times a day and that he thinks it is time for another dose. He then proceeded to lightly cough in his face mask. BUFFY provided update to pt's nurse. SW team will continue to follow pt during his stay on this unit.
--- NOTE | 2019-09-14 18:55 | NUR ---
ASSUMED CARE AT 0700 TODAY. HE HAS BEEN SOMEWHAT IRRITABLE WITH DEPRESSED MOOD AND FLAT AFFECT. HE WAS UPSET THIS RN COULD NOT FIND A SCHEDULED COUGH SYRUP. HE WAS INFORMED IT WAS PRN, BUT INSISTED IT WAS 4 TIMES A SHIFT AND NOT PRN. HE WAS UPSET WHEN THIS RN BECAME BUSY AND DID NOT GIVE THE DOSE WHEN HE THOUGHT IT SHOULD BE DUE. HE CALLED THIS RN SRINIVASAN ON SEVERAL OCCASIONS. HE CONTINUES TO HAVE 2+ BLATERAL LE TO LEGS.
[2019-09-14 19:27] VITALS: BP 147/67
--- NOTE | 2019-09-14 21:40 | NUR ---
Assumed care at change of shift. Pt. sitting in day room with mask on due to cough. Pt. is compliant with wearing mask. Cough is non-productive. Pt. is somatic and exaggerates cough when requesting PRN cough syrup. Education done regarding the times that cough suppressant could be givn and that it was not a scheduled medication and he would have to request a dose when needed. Assessment completed. Bilat upper lobes congested and occasional non-productive cough noted. Overall cough seems to be improving. Pt. has flat affect and is oriented x 4. He denies any aggressive feelings or SI/HI/AH/VH. Pt. amublates ad jesus and uses a walker some of the time. His gate is slow and slightly shuffling but steady. Took meds whole with thin liquids. No coughing or choking noted after swallowing.
[2019-09-14 23:42] VITALS: BP 147/67
[2019-09-15 07:30] VITALS: BP 142/79
[2019-09-15 08:58] VITALS: BP 147/67
--- NOTE | 2019-09-15 09:13 | NUR ---
ASSUMED CARE AT 0700 THIS MORNING. PT. UP, DRESSED AND ON THE UNIT. HE WAS SITTING QUIETLY IN THE DINING ROOM. HE SEEMS TO BE IN A BETTER MOOD TODAY THAN YESTERDAY, EVEN TEASING THIS RN, LAUGHING AND GIGGLING. TOOK HIS MORNING MEDICATIONS WITHOUT DIFFICULTY. WHILE ASSESSING THE PT, HE REMARKED THAT HIS SINUS DRAINAGE AND COUGH ARE GONE AT THIS TIME. GUAIFENESIN WAS LAST GIVEN AT 0515, THOUGH. HE IS CONTINUING TO EAT WELL.
--- NOTE | 2019-09-15 23:14 | NUR ---
Assumed care on 09/15/19 @ 19:00, sitting in mileu, watching tv and socializing with peers. Cooperated with assessment, HRRR. Lungs congested, which cleared with cough. ABD N x 4 Q . Reported bm today. Took meds whole with warm water. Provided PRN guifenasin cough syrup, Cepocol losange, and ibuprophen 600 for throat pain @ 2100.
[2019-09-16 03:42] VITALS: BP 147/67
[2019-09-16 05:37] LABS: ALBUMIN 3.3 g/dL (3.4-5.0); CALCIUM 8.6 mg/dL (8.5-10.1); POTASSIUM 3.9 mmol/L (3.5-5.1); TOTAL BILIRUBIN 0.5 mg/dL (<0.1-1.0); TOTAL PROTEIN 6.9 g/dL (6.4-8.2)
[2019-09-16 05:50] LABS: ABSOLUTE NEUTROPHILS 2.7 thou/uL (1.4-8.2); BASOPHILS 0.4 % (0.0-2.0); EOSINOPHILS 1.1 % (0.0-3.0); HEMATOCRIT 43.7 % (42.0-52.0); HEMOGLOBIN 14.6 gm/dL (14.0-18.0); LYMPHOCYTES 47.7 % (24.0-44.0); MCH 33.5 pg (26.0-34.0); MCHC 33.4 g/dL (28.0-37.0); MCV 100.4 fL (80.0-100.0); MONOCYTES 10.6 % (1.0-8.0); PLATELET COUNT 342 thou/uL (150-400); POLYS 40.2 % (36.0-66.0); RBC 4.35 mil/uL (4.50-6.00); RDW 13.8 % (10.5-14.5); WBC 6.6 thou/uL (4.0-11.0)
[2019-09-16 08:29] VITALS: BP 139/73
[2019-09-16 11:58] VITALS: BP 139/73
--- NOTE | 2019-09-16 12:19 | NUR ---
Pt was screened for his level II today with [facility] over the phone. MURIEL then called [facility] about their assessment and they stated they would be back out to visit this pt today. Muriel reported this to the Western Philosophy Professor and left VM about the visitor.
--- NOTE | 2019-09-16 14:00 | NUR ---
SW met with pt for 1:1 and spoke about his pendign placement, he is nervous about moving. He has made a friend in another pt on the unit. No group due to COVID restrictions
--- NOTE | 2019-09-16 16:41 | NUR ---
PATIENT CARE ASSUMED AT 19:30. PATIENT HAS BEEN CALMER AND LESS FIXATED ON SOMATIC AILMENTS TODAY. NO PAIN WHEN ASSESSED. AMBULATORY AND MAKES NEEDS KNOWN. AFFECT BLUNTED AND MOODS FLUCTUATE. HAS BEEN SOCIAL WITH PEERS ON UNIT DURING THE DAY. PERI PERES APPLIED ORDERED. PATIENT MEDICATION COMPLIANT. WAS TEARFUL DURING BLOOD DRAW LATER THIS AFTERNOON. SO WORRIED TAKING TOO MUCH BLOOD FROM HIM. PATIENT ASSURED HE WAS FINE AND HE HAD ADEQUATE SUPPLY - PATIENT NEEDS ENCOURAGEMENT TO NOT EAT PIZZA FOR EVERY LUNCE MEAL. IMPORTANCE OF NUTRITION AND ALTERNATE HEALTHY FOODS - PATIENT NEEDS ALOT OF REASSURANCE AND CAN BE VERY NEEDY. NO AGITATION OR AGGRESSION -
[2019-09-16 19:27] VITALS: BP 165/88
--- NOTE | 2019-09-17 01:22 | NUR ---
ASSUMED CARE OF PT AT 1900HRS. PT IS CALM AND COOPERATIVE THIS SHIFT. PT TOOK ALL OF HIS MEDS WHOLE. PT COMPLAINED OF SOME COUGH AND PRN MEDS WERE GIVEN. PT HAD AN ELEVATED BP BUT OTHER VSS. PT WAS ABLE TO GET COMFROTABLE AND SLEEP PART OF THE SHIFT. NO SI/HI/AH/VH NOTED. WILL CONTINUE TO MONITOR.
[2019-09-17 08:49] VITALS: BP 143/80
[2019-09-17 09:18] VITALS: BP 143/80
--- NOTE | 2019-09-17 10:31 | NUR ---
Nutrition followup: pt continues on [facility] unit. Eating 100% of meals and snacks. Noted pt needs encouragement to not request pizza at every lunch. RD reviewed importance of eating wide variety of foods and increased fruits and veggies. Voiced other food prefs. Weight up 4# from admit and BMI 34, obesity class 1. Continues on vitamin D and B12 supplementation. No recent BM documented. Low nutrition risk.
--- NOTE | 2019-09-17 12:21 | NUR ---
Pt was visited by [facility] and they have accepted this pt. Buffy also sent the DA [address] [facility] per Tori request again. Tori wants to wait until COM[facility]SE makes a decision before admitting, adn BUFFY is advocating for a d/c [facility]. Hoepfully they will have decision and pt can d/c this week. BUFFY reported this to the pt and he is excited to go to [facility].
[2019-09-17 19:36] VITALS: BP 157/75
--- NOTE | 2019-09-18 04:22 | NUR ---
pt only concern overnight was keeping room warm so he could sleep better. cough/ pain and sore throat were controled with prn meds. pt denies any SI/HI. no s/s of distress. will cont to monitor
[2019-09-18 09:05] VITALS: BP 146/78
--- NOTE | 2019-09-18 14:09 | NUR ---
SW met with pt and he was interested in TV at [facility] time. He was in pleasant mood and made "jokes' with staff. There was no group due to COVID 19 restrictions
--- NOTE | 2019-09-18 16:45 | NUR ---
PATIENT REMAINED APPROPRIATE THROUGHOUT THE DAY. DURING LUNCH A PATIENT WAS YELLING AND DISRUPTING OTHERS, CHRISTINE BEGAN TO CORRECT THE PATIENT CAUSING A DISTURBANCE. ENCOURAGED CHRISTINE TO ALLOW STAFF TO HANDLE DISRUPTION. CHRISTINE STATED "OK" AND SAT ON COUCH, CONTINUED TO WATCH TELEVISION AND INTERACTED APPROPRIATELY WITH OTHER PATIENTS. PATIENT UP AD BRYSON WITH STEADY BALANCED GAIT.
[2019-09-18 19:59] VITALS: BP 134/74
--- NOTE | 2019-09-19 02:33 | NUR ---
ASSUMED CARE FROM DAY SHIFT PT UP IN DAY ROOM, VISITING WITH OTHER PEERS CALM AND COOPERATIVE , ATE HS SNACK TALKATIVE AND CHEERFUL.PO MEDICATION TAKEN. AMBULATING AROUND AHALLLWAYS TOLERATING WELL. NO CONCERNS VOICED VOICED. RESTING WELL THROUGHOUT FREQ CHECKS.
[2019-09-19 08:00] VITALS: BP 125/86
[2019-09-19 08:48] VITALS: BP 125/86
--- NOTE | 2019-09-19 08:55 | NUR ---
Pt was accepted at [facility]. MURIEL called [facility] and left a wiht the d/c plans. MURIEL made packet and left it on the chart. SW faxed d/c orders and summary with PASRR determination, DA 124 abc and Level II screen to [phone]. Muriel provided nursing with # for Karla MORROW [phone] for report. MURIEL set up transportation with [facility] [phone] for 2pm. This was reported to Dr lr and nursing. MURIEL reported the d/c plans to pt too and he is happy with this outcome. Fax confirmation and fax packet left on chart.
[2019-09-19] MEDS ORDERED: FLOMAX0.4 MG PO (09:35)
[2019-09-19] MEDS ORDERED: CLARITIN10 MG PO (09:35)
[2019-09-19] MEDS ORDERED: NORVASC10 MG PO (09:35)
[2019-09-19] MEDS ORDERED: PRIMIDONE 250M250 MG PO (09:36)
[2019-09-19] MEDS ORDERED: DEPAKOTE 250MG250 M1 PO (09:37)
[2019-09-19] MEDS ORDERED: TIAGABINE HCL4 MG PO (09:37)
[2019-09-19] MEDS ORDERED: HYDROCHLOROTHIA25 M2 PO (09:38)
[2019-09-19] MEDS ORDERED: COLACE 100 MG100 MG PO (09:39)
[2019-09-19] MEDS ORDERED: PROTONIX40 M1 PO (09:39)
[2019-09-19] MEDS ORDERED: B-12500 MCG PO (09:40)
[2019-09-19] MEDS ORDERED: VITAMIN D325 MCG PO (09:40)
--- NOTE | 2019-09-19 14:22 | NUR ---
Sw met with pt before he left and was happy to be living in a new nH . Sw spoke with pt's sister and she is satisfied with this outcome. No gorup due to covid 19 restrictions
--- NOTE | 2019-09-19 14:54 | NUR ---
assumed pt care report received from nurse. pt is aox4. on ra, vss. order for discharge received from doctor. pt received a shower and shaved prior to discharging. pt denies pain, n/v. inventory of belongings done. patient left floor at 1400 on wheelchair accompanied by this nurse and volunteer transporter. discharge paper given.
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
== END 2019-09-19 14:00 | DRG 884 ==
LOC: ER 14:23 → SBH 16:32 → EROBS 16:32 → SBH 17:32
PROVIDERS: Physician Assistant; Psychiatry & Neurology Psychiatry; ADMIT Psychiatry & Neurology Psychiatry
DX: F84.0 Autistic disorder (principal); F91.1 Conduct disorder, childhood-onset type; G93.40 Encephalopathy, unspecified; E66.9 Obesity, unspecified; F32.9 Major depressive disorder, single episode, unspecified; I10 Essential (primary) hypertension; R05 Cough; N40.0 Benign prostatic hyperplasia without lower urinary tract symptoms; G40.909 Epilepsy, unspecified, not intractable, without status epilepticus; E53.8 Deficiency of other specified B group vitamins; E55.9 Vitamin D deficiency, unspecified; Z68.34 Body mass index [BMI] 34.0-34.9, adult; Z79.2 Long term (current) use of antibiotics; Z71.3 Dietary counseling and surveillance; Z81.8 Family history of other mental and behavioral disorders; Z79.899 Other long term (current) drug therapy; Z88.5 Allergy status to narcotic agent; Z88.0 Allergy status to penicillin; Z88.8 Allergy status to other drugs, medicaments and biological substances
CPT/HCPCS: 10880